=== PATIENT | female | born 1975 | race Two or more races ===

== ENCOUNTER → 2024-04-13 | Outpatient (CLI) | payer MEDICAID, SELFPAY ==
--- NOTE | 2024-04-13 14:45 | XR_ITS ---
Examination: Diagnostic digital mammography, unilateral, LEFT Computer aided detection 3-D breast Tomosynthesis, unilateral Date and time of exam: April 13, 2024 1338 hours INDICATIONS: Mammogram August 22, 2023 focal asymmetry retroareolar region left breast Technique: Nonmagnified MLO, CC views of the left breast have been obtained, reconstructed from 3-D Tomosynthesis images. R2 computer aided detection program utilized for evaluation of suspicious masses and/or abnormal calcifications. 3-D Tomosynthesis images obtained. Findings: Scattered areas of fibroglandular density Retroareolar focal asymmetry left breast remains Impression: BI-RADS category 0: Incomplete: Need additional imaging evaluation Left breast sonography follow-up is needed with specific attention to the retroareolar region left breast
== END | disposition home or self-care (01) ==
LOC: CDIM 14:23
PROVIDERS: Referring Provider Nurse Practitioner Primary Care; Visit Provider Nurse Practitioner Primary Care
DX: R92.8 Other abnormal and inconclusive findings on diagnostic imaging of breast (principal)
CPT/HCPCS: 77061; 77065; G0279

== ENCOUNTER → 2024-06-09 | Outpatient (CLI) | payer MEDICAID, SELFPAY ==
--- NOTE | 2024-06-09 14:19 | XR_ITS ---
Examination: Breast ultrasound, unilateral, left complete Date and time of exam: June 09, 2024 1436 hours INDICATIONS: Mammogram April 13, 2024 left breast retroareolar focal asymmetry Technique: Real-time angelo scale ultrasonographic imaging performed left breast including all 4 quadrants as well as nipple retroareolar and axillary region. Findings: 3:00 cyst 4 x 4 millimeter No solid nodules IMPRESSION: BI-RADS Category 2: Benign findings
== END | disposition home or self-care (01) ==
PROVIDERS: PCP Nurse Practitioner Primary Care; Referring Provider Nurse Practitioner Primary Care; Visit Provider Nurse Practitioner Primary Care
DX: N64.89 Other specified disorders of breast (principal)
CPT/HCPCS: 76641

== ENCOUNTER 2024-09-15 02:34 | Emergency (ER) | payer MEDICAID, SELFPAY ==
[2024-09-15 02:44] VITALS: BP 126/85; PULSE 96; RESP 16; TEMP 36.7; O2SAT 97
--- NOTE | 2024-09-15 03:06 | EKG_ITS ---
[facility] Test Date: 2024-09-15 Pat Name: JOAN CALDERON Department: Room: - Gender: Female Credit Report Checker: : 1975 Requested By: Piter Diez Order Number: [id number] Reading MD: Piter Diez Measurements Intervals [place] Rate: 99 P: 62 MA: 135 QRS: 46 QRSD: 82 T: 49 QT: 356 QTc: 458 Interpretive Statements SINUS RHYTHM Compared to ECG 04/30/2020 08:22:00 No significant changes /store/S0/[id number].pdf
--- NOTE | 2024-09-15 03:07 | XR_ITS ---
Examination: PA chest single view. TECHNIQUE: Upright PA chest single view Date and time: September 15, 2024, 0311 hours Comparison September 11, 2022. INDICATIONS: Epigastric pain radiating to the back today. FINDINGS: Normal heart size. Lungs are clear. The osseous structures are intact. IMPRESSION: No active disease.
--- NOTE | 2024-09-15 03:08 | PD.EDRME ---
Rapid Medical Screening Exam RME Arrival date/time: 09/15/24 02:34 Chief Complaint: Abdominal Pain Time Seen by Provider: 09/15/24 02:52 Vital signs: Vital Signs Temperature 98.1 F 09/15/24 02:44 Pulse Rate 96 09/15/24 02:44 Respiratory Rate 16 09/15/24 02:44 Blood Pressure 126/85 H 09/15/24 02:44 Pulse Oximetry (%) 97 09/15/24 02:44 Oxygen Delivery Method Room Air 09/15/24 02:44 E Narrative: Epigastric pain, nausea/vomiting since last night
[2024-09-15] MEDS: ONDANSETRON ODT 4 MG TABRAP PO (03:34)
[2024-09-15] MEDS: HYDROcodone/APAP 5/325 TABLET 1 TAB PO (03:35)
[2024-09-15] MEDS: LIDOCAINE VISCOUS 2% 15 ML UDC PO (03:36)
[2024-09-15] MEDS: MG HYD/AL HYD/SIME (Maalox Reg) SUSP 30 ML UDC PO (03:36)
[2024-09-15 03:37] LABS: Collection Type, Urine Clean Catch
[2024-09-15 03:45] LABS: Bilirubin,Urine Negative (Negative); Blood,Urine Trace (Negative); Clarity,Urine Clear (Clear/Hazy); Color,Urine Yellow (Lt Yel-Yel); Glucose, Urine 4+ (Negative); Ketones,Urine Negative (Negative); Leukocyte Esterase,Urine Positive (Negative); Nitrite,Urine Negative (Negative); PH,Urine 5.5 (5.0-7.0); Protein,Urine Negative (Neg - Trace); RBC,Urine 5 /hpf (0-3); Specific Gravity,Urine 1.028 (1.001-1.035); Squamous Epithelial Cell,Urine 1 /hpf (0-5); Urobilinogen,Urine Negative mg/dL (0.0-1.0); WBC,Urine 2 /hpf (0-5)
[2024-09-15 04:07] LABS: Basophils # (Auto) 0.0 Thou/mm3 (0.0-0.2); Basophils % (Auto) 0 % (0-2.5); Eosinophils # (Auto) 0.7 Thou/mm3 (0.0-0.5); Eosinophils % (Auto) 8 % (0-10); Hematocrit 41.8 % (36.0-46.0); Hemoglobin 14.7 g/dL (12.0-16.0); Immature Granulocytes Auto 0.03 Thou/mm3 (0.00-0.00); Lymphocytes # (Auto) 2.6 Thou/mm3 (1.0-4.8); Lymphocytes % (Auto) 29 % (10-50); Mean Corpuscular HGB Conc 35.2 g/dl (31.0-37.0); Mean Corpuscular Hemoglobin 30.3 pg (25.0-35.0); Mean Corpuscular Volume 86 fL (80-100); Monocytes # (Auto) 0.9 Thou/mm3 (0.0-0.8); Monocytes % (Auto) 10 % (0-12); Neutrophils # (Auto) 4.7 Thou/mm3 (1.8-7.7); Neutrophils % (Auto) 53 % (37-80); Nucleated Red Blood Cell # 0.00 Thou/mm3 (0.00-0.00); Nucleated Red Blood Cell % 0 /100 WBC (0); Platelet Count 270 Thou/mm3 (140-440); RDW Standard Deviation 37.0 fL (36.4-46.3); Red Blood Count 4.85 Miln/mm3 (4.00-5.20); White Blood Count 8.9 Thou/mm3 (3.6-11.0)
[2024-09-15 04:27] LABS: Alanine Aminotransferase 39 U/L (10-49); Albumin, Serum 4.4 gm/dL (3.5-5.0); Albumin/Globulin Ratio 1.4 (1.2-2.2); Alkaline Phosphatase 68 U/L (46-116); Anion Gap 9 (7-16); Aspartate Amino Transferase 35 U/L (0-34); BUN/Creatinine Ratio 14 Ratio (12-20); Bilirubin,Total 0.6 mg/dL (0.3-1.2); Blood Urea Nitrogen 10 mg/dL (9-23); Calcium 9.6 mg/dL (8.3-10.6); Calcium (Corrected) 9.6 mg/dL (8.5-10.1); Carbon Dioxide 25.7 mMol/L (20.0-31.0); Chloride 106 mMol/L (98-107); Creatinine (Component) 0.7 mg/dL (0.6-1.3); Globulin 3.2 gm/dL (2.3-3.5); Glucose 108 mg/dL (74-106); Lipase 53 U/L (12-53); Osmolality,Calculated 281 (275-295); Potassium 3.5 mMol/L (3.4-5.1); Sodium 141 mMol/L (136-145); Total Protein 7.6 gm/dL (5.7-8.2); Troponin I < 0.002 ng/mL (0.0-0.045); eGFR > 60 See Note
--- NOTE | 2024-09-15 05:41 | PD.EDABDPN ---
ED Abdominal Pain RME/HPI General Chief Complaint: Abdominal Pain Stated complaint: UPPER ABD PAIN RADIATING TO BACK Time seen by provider: 09/15/24 02:52 Arrival date/time: 09/15/24 02:34 RME / HPI RME / HPI narrative: Epigastric pain, nausea/vomiting since last night ----- Dr. Rodríguez?s Main ED Evaluation: 49yo female with a history of DM, HTN, HLD, gallstones presents to the ED for a chief complaint of epigastric pain for the last few days. Patient states her pain radiates to her back, reporting it significantly worsened last night. Patient reports associated N/V. She denies any fever, chills, diarrhea, UTI symptoms or any other associated symptoms. NKA. Related Data Home Medications ?Medication ?Instructions ?Recorded ?Confirmed atorvastatin 20 mg tablet 20 mg PO QDAY 04/30/20 04/30/20 lisinopril 10 1 tab PO QDAY 04/30/20 04/30/20 mg-hydrochlorothiazide 12.5 mg tablet Held on 05/04/20. Instructions: Resume on 05/06/20. Previous Rx's ?Medication ?Instructions ?Recorded apixaban 2.5 mg tablet (Eliquis) 2.5 mg PO BID #60 tabs 05/04/20 hydrocodone 5 mg-acetaminophen 325 1 tab PO Q4HR PRN Pain Scale 4-6 05/04/20 mg tablet (Moderate #20 tabs sennosides 8.6 mg-docusate sodium 1 tab-cap PO BID PRN constipation 05/04/20 50 mg tablet (Senokot-S) #20 tabs Allergies Allergy/AdvReac Type Severity Reaction Status Date / Time No Known Allergies Allergy Verified 09/15/24 02:35 Review of Systems Review of Systems Systems Reviewed: All systems reviewed, normal except as documented Past Medical History Past Medical History NEUROLOGIC: Negative Seizures CARDIAC: Positive Hypercholesterolemia and Hypertension; Negative Cardiac Disorders or Congestive Heart Failure RESPIRATORY: Negative Chronic Obstructive Pulmonary Disease (COPD) or Asthma GENITOURINARY: Negative Renal Disease ENDOCRINE: Negative Diabetes Mellitus Type 1 or Diabetes Mellitus Type 2 HEMATOLOGIC: Negative Sickle Cell Disease OTHER HISTORY: Negative Blood Transfusions, Blood Transfusion Reaction or Anesthesia Reactions Family History FAMILY HISTORY: Positive Family Cardiac Disorders Surgical History SURGICAL: Positive Section Social History SMOKING STATUS: Never smoker SECOND HAND EXPOSURE: No ED Exam Narrative Physical exam: GEN. APPEARANCE: The patient is alert awake oriented X-3 in no distress, lying down comfortably, does not look ill/toxic. Patient has good eye contact. Patient is cooperative. VITALS: All vitals were reviewed and the pulse ox is 97% on room air which is normal according to my interpretation. HEENT: Normocephalic, atraumatic. Pupils are equal and reactive. Oral mucosa is moist. Patent Nares NECK: Supple, nontender, no thyromegaly, no meningismus, no JVD CHEST: Symmetrical, atraumatic, and with equal expansion , Nontender on palpation no deformity and no crepitus. CARDIOVASCULAR: Heart regular rhythm no murmur or gallop rub or extra beats. LUNGS: Clear to auscultation bilaterally with symmetrical chest rise. No laboring tachypnea or wheezing. No intercostal subcostal retraction. No rales and no rhonchi. ABDOMEN: Soft, flat, nontender to palpation, no guarding or rebound tenderness. There are no abnormal masses palpated. Active and normal bowel sounds. EXTREMITIES: Nontender. No edema. No cyanosis. Patient is able to move all 4 extremities well, with full ROM and good CSM. SKIN: Warm and dry, no jaundice or rashes noted. NEURO: Patient is VALLECILLO x 4, Cranial nerves II through XII grossly intact. There is no focal neurologic deficits noted. GCS is 15, PNS and BUSINESS OFFICE ASSISTANT appear grossly intact. PSYCHIATRIC: Patient is in normal mood and affect. Course Quality Measures none Orders Category Date Time Status EKG (ED ONLY) *Do not use* NOW Care 09/15/24 03:06 Completed CXR [XR chest 1V] Stat Exams 09/15/24 03:07 Taken EKG (ED Only) Stat Exams 09/15/24 03:06 Draft US abdomen limited Stat Exams 09/15/24 05:59 Ordered CBC Stat Lab 09/15/24 03:57 Completed CMP [Comprehensive Metabolic Panel] Stat Lab 09/15/24 03:57 Completed Lipase Stat Lab 09/15/24 03:57 Completed Troponin I Stat Lab 09/15/24 03:57 Completed UA [Urinalysis] Stat Lab 09/15/24 03:30 Completed HYDROcodone*/APAP 5/325 [[place] 5/325] Med 09/15/24 03:07 Discontinued 1 tab PO X1 ONE Lidocaine 2% Viscous [Xylocaine 2% Viscous] Med 09/15/24 03:07 Discontinued 15 ml PO X1 ONE Ondansetron Odt [Zofran Odt] Med 09/15/24 03:06 Discontinued 4 mg PO X1 ONE mg Hyd/Al Hyd/Zenon Susp [Maalox Susp] Med 09/15/24 03:07 Discontinued 30 ml PO X1 ONE Vital Signs Vital signs: Vital Signs Temperature 98.1 F 09/15/24 02:44 Pulse Rate 96 09/15/24 02:44 Respiratory Rate 16 09/15/24 02:44 Blood Pressure 126/85 H 09/15/24 02:44 Pulse Oximetry (%) 97 09/15/24 02:44 Oxygen Delivery Method Room Air 09/15/24 02:44 Abdominal Pain MDM MDM Narrative MDM Narrative:: Scribe Attestation: 09/15/24 - IJael am scribing for and in the presence of Dr. Rodríguez. Patient data External records reviewed:: [facility] previous records (Per chart review, patient has no relevant previous ED visits.) Clinical information provided by:: patient Social determinants that could affect healthcare access:: none Patient has the following chronic illnesses:: DM, HTN, HLD How is presenting disease/condition affected by chronic disease/condition?: uneffected by Evaluation data The following diagnostics were reviewed and interpreted by me:: lab results Lab and/or radiology exams considered but not ordered:: none Interpretation Summary: CBC normal, CMP normal, Troponin normal, Lipase normal, UA unremarkable. CXR is negative for any infiltrates, pleural effisions or cardiomegaly, according to my interpretation. EKG done at 0325, NSR, rate of 99, normal intervals, nonspecific ST-T changes, no STEMI, according to my interpretation. Medications / Prescriptions Medications or Prescriptions considered but not ordered:: none Medication administrations:: Medication Administration History Discontinued Medications Hydrocodone Bitart/Acetaminophen (Hydrocodone/Apap 5/325 Tablet) 1 tab PO X1 ONE Stop: 09/15/24 03:08 Last Admin: 09/15/24 03:35 Dose: 1 tab Documented By: CVL Al Hydrox/Mg Hydrox/Simethicone (Mg Hyd/Al Hyd/Zenon (Maalox Reg) Susp 30 Ml Udc) 30 ml PO X1 ONE Stop: 09/15/24 03:08 Last Admin: 09/15/24 03:36 Dose: 30 ml Documented By: CVL Lidocaine HCl (Lidocaine Viscous 2% 15 Ml Udc) 15 ml PO X1 ONE Stop: 09/15/24 03:08 Last Admin: 09/15/24 03:36 Dose: 15 ml Documented By: CVL Ondansetron HCl (Ondansetron Odt 4 Mg Tabrap) 4 mg PO X1 ONE; Protocol Stop: 09/15/24 03:07 Last Admin: 09/15/24 03:34 Dose: 4 mg Documented By: CVL see above Consultations Consultation(s) initiated? (list below): No Diagnosis Differential diagnosis abdominal pain: diverticulitis, pancreatitis and other (cholelithiasis, cholecystitis) Most likely diagnosis given after review of the tests above:: dx pending at sign out Admission Indicated Admission indicated?: not indicated Admission Request Was there a request for admission?: No Disposition Plan Disposition Plan: other (specify) (Signed out to the next oncoming provider at 0600 pending ultrasound.) Discharge Plan Plan Discharge Disposition comment: Stable at signout Prescriptions/Referrals Prescriptions/Med Rec: No Action atorvastatin 20 mg Tablet 20 mg PO QDAY lisinopril-hydrochlorothiazide 10-12.5 mg Tablet 1 tab PO QDAY hydrocodone-acetaminophen 5-325 mg Tablet 1 tab PO Q4HR MDD 6 tabs PRN (Reason: Pain Scale 4-6 (Moderate) Qty: 20 0RF Eliquis 2.5 mg Tablet 2.5 mg PO BID Qty: 60 0RF sennosides-docusate sodium [Senokot-S] 8.6-50 mg tablet 1 tab-cap PO BID PRN (Reason: constipation) Qty: 20 0RF Referrals: Francisco TORRES)Love FNP [Primary Care Provider] - In 1 week Problem List Clinical Impression: Epigastric abdominal pain Patient/Caregiver Discharge Instructions Print Language: Icelandic Stand Alone Forms: Adriana Award Info., Patient Portal Info Letter
--- NOTE | 2024-09-15 05:59 | XR_ITS ---
Examination: Abdomen sonogram, Limited Date and time of exam: September 15, 2024, 0704 hours INDICATIONS: Onset epigastric pain today Technique: Real-time angelo scale transabdominal sonographic images of the upper abdomen obtained. Findings: Gallstones. Gallbladder wall 0.3 cm. Common bile duct 0.4 cm. Pancreatic head 2.1 cm. Liver 15.2 cm no liver lesions. Normal hepatopedal portal venous flow. Patent IVC. IMPRESSION: Cholelithiasis, negative for cholecystitis
[2024-09-15 08:56] VITALS: BP 107/76; PULSE 82; RESP 16; TEMP 36.6; O2SAT 95
== END 2024-09-15 09:24 | disposition home or self-care (01) ==
PROVIDERS: Physician Assistant; Emergency Provider Emergency Medicine; PCP Nurse Practitioner Primary Care
DX: K80.20 Calculus of gallbladder without cholecystitis without obstruction (principal); E11.9 Type 2 diabetes mellitus without complications; E78.5 Hyperlipidemia, unspecified; I10 Essential (primary) hypertension
CPT/HCPCS: 36415; 71045; 76705; 80053; 81001; 83690; 84484; 85025; 93005; 99284; J3490; Q0162; A9270

== ENCOUNTER → 2024-10-07 | Outpatient (CLI) | payer MEDICAID, SELFPAY ==
--- NOTE | 2024-10-07 08:45 | XR_ITS ---
Examination: Screening digital mammography, bilateral Computer aided detection 3-D breast Tomosynthesis, bilateral Date and time of exam: October 07, 2024 0824 hours Compared to mammograms dating to June 07, 2022 Indication: Screening Technique: Nonmagnified MLO, CC views of the breasts to been obtained, reconstructed from 3-D Tomosynthesis images. R2 computer aided detection program utilized for evaluation of suspicious masses and/or abnormal calcifications. 3-D Tomosynthesis images obtained. Findings: Scattered areas of fibroglandular density. Breast biopsy marker retroareolar region right breast No interval suspicious masses Impression: BI-RADS category II: Benign Findings. Recommend 1 year follow-up mammogram.
== END | disposition home or self-care (01) ==
PROVIDERS: Referring Provider Nurse Practitioner Primary Care; Visit Provider Nurse Practitioner Primary Care
DX: Z12.31 Encounter for screening mammogram for malignant neoplasm of breast (principal); R92.323 Mammographic fibroglandular density, bilateral breasts
CPT/HCPCS: 77063; 77067

== ENCOUNTER 2024-10-20 06:25 | Day surgery (SDC) | payer MEDICAID, SELFPAY ==
[2024-10-15 08:11] VITALS: BMI 28.8
[2024-10-15 09:58] LABS: Basophils # (Auto) 0.0 Thou/mm3 (0.0-0.2); Basophils % (Auto) 0 % (0-2.5); Eosinophils # (Auto) 1.2 Thou/mm3 (0.0-0.5); Eosinophils % (Auto) 13 % (0-10); Hematocrit 45.3 % (36.0-46.0); Hemoglobin 15.0 g/dL (12.0-16.0); Immature Granulocytes Auto 0.05 Thou/mm3 (0.00-0.00); Lymphocytes # (Auto) 2.3 Thou/mm3 (1.0-4.8); Lymphocytes % (Auto) 25 % (10-50); Mean Corpuscular HGB Conc 33.1 g/dl (31.0-37.0); Mean Corpuscular Hemoglobin 30.2 pg (25.0-35.0); Mean Corpuscular Volume 91 fL (80-100); Monocytes # (Auto) 0.8 Thou/mm3 (0.0-0.8); Monocytes % (Auto) 8 % (0-12); Neutrophils # (Auto) 4.9 Thou/mm3 (1.8-7.7); Neutrophils % (Auto) 54 % (37-80); Nucleated Red Blood Cell # 0.00 Thou/mm3 (0.00-0.00); Nucleated Red Blood Cell % 0 /100 WBC (0); Platelet Count 298 Thou/mm3 (140-440); RDW Standard Deviation 40.7 fL (36.4-46.3); Red Blood Count 4.97 Miln/mm3 (4.00-5.20); White Blood Count 9.3 Thou/mm3 (3.6-11.0)
[2024-10-15 10:08] LABS: Alanine Aminotransferase 38 U/L (10-49); Albumin, Serum 4.5 gm/dL (3.5-5.0); Albumin/Globulin Ratio 1.4 (1.2-2.2); Alkaline Phosphatase 75 U/L (46-116); Anion Gap 7 (7-16); Aspartate Amino Transferase 39 U/L (0-34); BUN/Creatinine Ratio 13 Ratio (12-20); Bilirubin,Total 0.5 mg/dL (0.3-1.2); Blood Urea Nitrogen 12 mg/dL (9-23); Calcium 9.6 mg/dL (8.3-10.6); Calcium (Corrected) 9.6 mg/dL (8.5-10.1); Carbon Dioxide 28.6 mMol/L (20.0-31.0); Chloride 105 mMol/L (98-107); Creatinine (Component) 0.9 mg/dL (0.6-1.3); Estimated Creatinine Clearance 67.3 mL/min (>60); Globulin 3.2 gm/dL (2.3-3.5); Glucose 118 mg/dL (74-106); Osmolality,Calculated 281 (275-295); Potassium 4.1 mMol/L (3.4-5.1); Sodium 141 mMol/L (136-145); Total Protein 7.7 gm/dL (5.7-8.2); eGFR > 60 See Note
[2024-10-20] VITALS (8 sets, daily range): BP systolic 96–123; BP diastolic 57–72; PULSE 51–74; RESP 12–20; TEMP 36.1–36.3; O2SAT 96–100; BMI 29.0
--- NOTE | 2024-10-20 07:18 | CHAP ---
Prayed with patient.
--- NOTE | 2024-10-20 09:05 | PD.SUROPNT ---
Date of Procedure 10/20/24 Pre Op Diagnosis Symptomatic cholelithiasis Post Op Diagnosis Cholelithiasis with cholecystitis Mildly fatty appearing liver Procedure Laparoscopic cholecystectomy Findings Distended gallbladder with multiple gallstones and chronic cholecystitis. The liver was smooth and mildly fatty in appearance Procedure Description Patient was brought into the operating room in supine position. After administration of general endotracheal anesthesia abdomen was prepped and draped in standard surgical manner. A Veress needle was inserted through the umbilicus and pneumoperitoneum was obtained up to 15 mmHg. The Veress needle was then removed, a 5 mm infraumbilical incision was made and the 5mm trocar was inserted. Laparoscopic camera was placed. Under direct visualization a laparoscopic camera a 10 mm trocar was placed in subxiphoid and two 5 mm trocars placed in right upper quadrant. Anterior surface of the liver was smooth. The liver was not appeared to be enlarged, however was mildly fatty in appearance. The gallbladder was identified and was noted to be moderately distended with multiple large gallstones and chronic cholecystitis. It was retracted cephalad and laterally. Dissection started near the infundibulum of gallbladder where cystic duct and gallbladder junction clearly identified. The cystic duct was circumferentially dissected off the peritoneum and surrounding inflammatory tissue. The critical view of safety was clearly demonstrated. Cystic duct was then divided between 2 endoclips proximally and one distally. The cystic artery was similarly dissected and divided. The gallbladder was then from the liver bed using electrocautery. The gallbladder was then placed inside an Endo Catch and removed from the abdomen utilizing subxiphoid trocar site. The area was copiously and thoroughly washed and irrigated, all the fluid was suctioned and the suction fluid returned clear. Hemostasis achieved using electrocautery. Endoclips noted be in place and intact without any bleeding or any leakage. Hemostasis was adequate and satisfactory. The subxiphoid trocar sites fascial defect was closed with 0 Vicryl using Endo Closure device. Instruments and trocars removed, pneumoperitoneum was evacuated and the incisions closed with 4-0 Monocryl in subcuticular fashion. Instrument needle and sponge counts were all reported to be correct X2. Patient tolerated the procedure well, was extubated, breathing spontaneously and without difficulty and was transferred to postanesthesia care in stable condition. Anesthesia GETA and local Pathology / specimen Other (Gallbladder and contents) Estimated Blood Loss 20 Condition Stable Disposition PACU Surgeon Joyce Redd MD Surgical Staff Operation Date: 10/20/24 08:30 <No data on this case meets the specified criteria>
--- NOTE | 2024-10-20 09:11 | SUR.PHASEI ---
pt received from OR in recovery bay 5. pt obtunded, breathing unlabored on oxymask 8l, oral airway in place. v/s stable. pt dressing to abd dermabond x4 cdi. report received from Gil Najera and Juan NIEVES.
[2024-10-20] MEDS: ONDANSETRON INJ 2 MG/ML INJ 2 ML 4 MG IVP (09:40)
[2024-10-20] MEDS: fentaNYL CIT INJ 50 mCg/ML AMP 2ML IVP (09:41)
--- NOTE | 2024-10-20 10:30 | SUR.PHASEII ---
pt awake and alert, breathing unlabored on room air. v/s stable. pt dressing to abd x4 cdi. pt able to ambulate to wheelchair with steady gait. d/c instructions given with s/o Aryan in room using topper press operator automatic Rafat connellFliggo, all questions answered. pt d/c via wheelchair with all belongings.
== END 2024-10-20 10:30 | disposition home or self-care (01) ==
PROVIDERS: PCP Nurse Practitioner Primary Care; Referring Provider Surgery; Visit Provider Surgery
PROC: 0FT44ZZ Resection of Gallbladder, Percutaneous Endoscopic Approach (ICD-10-PCS; CPT 47562; principal; 2024-10-20 08:30)
DX: K80.10 Calculus of gallbladder with chronic cholecystitis without obstruction (principal); K76.0 Fatty (change of) liver, not elsewhere classified; E11.9 Type 2 diabetes mellitus without complications; I10 Essential (primary) hypertension; M19.90 Unspecified osteoarthritis, unspecified site
CPT/HCPCS: 47562; 36415; 80053; 84703; 85025; A4217; A4649; J0131; J0694; J2405; J2704; J3010; J3490